=== PATIENT | female | born 1965 | race African-American/Black ===

== ENCOUNTER 2024-07-29 10:21 | Emergency (ER) | payer MEDICAID ==
[~2024-07-29] VITALS: Ht 154.9 cm; Wt 77.0 kg
[2024-07-29 10:30] VITALS: O2SAT 96
[2024-07-29] MEDS ORDERED: ACETAMINOPHEN 325MG TABLET PO ONE (11:15)
[2024-07-29] MEDS ORDERED: TETANUS, DIPHTHERIA, PERTUSSIS VAC/PF 0.5ML (>10YR OLD) IM ONE ×2 (11:15→15:00)
[2024-07-29] MEDS ORDERED: IBUP-2029 MT (13:30)
[2024-07-29] MEDS ORDERED: ACETAMINOPHEN 325MG TABLET PO NR (14:15)
[2024-07-29] MEDS: LIDOCAINE HCL/PF 1% 10 MG/ML 5ML VIAL INFIL ONE (14:20)
[2024-07-29 14:21] VITALS: BP 128/88; PULSE 102; RESP 16; TEMP 36.8; O2SAT 96
== END 2024-07-29 14:22 | disposition home or self-care (01) ==
LOC: ER 10:21
DX: S81.012A Laceration without foreign body, left knee, initial encounter (principal); I10 Essential (primary) hypertension; Z86.73 Personal history of transient ischemic attack (TIA), and cerebral infarction without residual deficits; W18.30XA Fall on same level, unspecified, initial encounter; Y93.89 Activity, other specified; Y92.89 Other specified places as the place of occurrence of the external cause; Y99.8 Other external cause status
CPT/HCPCS: 99283; 73562; 12002; J2003